=== PATIENT | male | born 1955 | race Caucasian/White ===

== ENCOUNTER → 2016-06-20 | Outpatient (CLI) | payer BC | LOC: LAB 15:34 | PROVIDERS: ATTEND Internal Medicine | DX: M81.0 Age-related osteoporosis without current pathological fracture (principal) | CPT/HCPCS: 36415; 83880 ==

== ENCOUNTER → 2016-06-25 | Outpatient (CLI) | payer BC ==
[2016-06-25 13:04] LABS: BLOOD UREA NITROGEN 12 mg/dL (7-22); CALCIUM 9.3 mg/dL (8.7-10.7); EST GLOMERULAR FILTRATION > 60 (>60 ml/min/1.73m(2))
== END ==
LOC: LAB 12:44
PROVIDERS: ATTEND Internal Medicine
DX: I10 Essential (primary) hypertension (principal); M81.0 Age-related osteoporosis without current pathological fracture
CPT/HCPCS: 36415; 80048

== ENCOUNTER → 2016-09-11 | Outpatient (CLI) | payer BC ==
--- NOTE | 2016-09-11 09:33 | EKG ---
[address] [address] Measurements Intervals [place] Rate: 58 P: 45 IL: 179 QRS: 8 QRSD: 102 T: -1 QT: 432 QTc: 429 Interpretive Statements SINUS RHYTHM Compared to ECG 09/25/2014 11:01:58 No significant changes Electronically Signed On 09-11-16 17:33:33 MDT by Kumar Arriaga [email or web address]
[2016-09-11 10:53] LABS: BILIRUBIN,URINE NEGATIVE (NEG); CLARITY,URINE CLEAR (CLEAR); COLOR,URINE YELLOW; GLUCOSE, URINE (UA) NEGATIVE (NEG); NITRATE,URINE NEGATIVE (NEG); OCCULT BLOOD,URINE NEGATIVE (NEG); PH,URINE 5.5 (5.0-8.5); PROTEIN,URINE NEGATIVE (NEG); UROBILINOGEN,URINE 0.2 mg/dL (0.2)
[2016-09-11 10:54] LABS: BASOPHILS # (AUTO) 0.04 10*3/UL; EOSINOPHILS # (AUTO) 0.18 10*3/UL; EOSINOPHILS % (AUTO) 4.5 % (0-8); HEMATOCRIT 47.4 % (42.0-52.0); HEMOGLOBIN 16.1 g/dL (14.0-18.0); LYMPHOCYTES # (AUTO) 1.46 10*3/uL; MEAN CORPUSCULAR HEMOGLOBIN 29.2 PG (27-31); MEAN PLATELET VOLUME 10.1 FL (7.4-12.2); MONOCYTES # (AUTO) 0.44 10*3/UL (0.3-0.8); MONOCYTES % (AUTO) 11.1 % (5-15); NEUTROPHILS # (AUTO) 1.86 10*3/UL; NEUTROPHILS % (AUTO) 46.7 % (50-80); RED BLOOD COUNT 5.51 10^6/uL (4.70-6.10)
[2016-09-11 10:57] LABS: PLATELET MORPHOLOGY COMMENT NORMAL MORPHOLOGY (NORM); RBC MORPHOLOGY COMMENT NORMAL MORPHOLOGY (NORM); WBC MORPHOLOGY COMMENT NORMAL MORPHOLOGY (NORM)
[2016-09-11 11:06] LABS: RBC,URINE 0-3 /hpf; URINE SAMPLE TYPE CLEAN CATCH URINE
[2016-09-11 11:08] LABS: BLOOD UREA NITROGEN 14 mg/dL (7-22); CHOL/HDL RATIO 4.41 RATIO (0-4.0); EST GLOMERULAR FILTRATION > 60 (>60 ml/min/1.73m(2)); HDL CHOLESTEROL 36 mg/dL (40-150); SERUM ALBUMIN 4.2 g/dL (3.5-4.8); SERUM CHOLESTEROL 159 mg/dL (120-200)
== END ==
LOC: MOB LAB 09:23
PROVIDERS: ATTEND Internal Medicine
DX: Z01.812 Encounter for preprocedural laboratory examination (principal); Z01.810 Encounter for preprocedural cardiovascular examination; M43.06 Spondylolysis, lumbar region; E78.5 Hyperlipidemia, unspecified; I10 Essential (primary) hypertension
CPT/HCPCS: 80053; 80061; 81001; 82550; 84443; 85025; 93005; 93010